=== PATIENT | female | born 1990 | race Caucasian/White ===

== ENCOUNTER 2021-10-17 21:17 | Emergency (ER) | payer OTHER ==
[2021-10-17] MEDS ORDERED: HYDROcodone/Acetaminophen 5/325 mg Tablet ONE (23:03)
[2021-10-17] MEDS ORDERED: HYDROcodone/Acetaminophen 10/325 mg Tablet ONE (23:05)
== END 2021-10-18 01:38 | disposition home or self-care (01) ==
LOC: CSHERS 21:17
DX: N83.201 Unspecified ovarian cyst, right side (principal)
CPT/HCPCS: 76856